=== PATIENT | male | born 2005 | race Two or more races ===

== ENCOUNTER 2024-11-19 08:48 | Emergency (ER) | payer BC, SELFPAY ==
[2024-11-19 08:52] VITALS: BP 136/85; PULSE 51; TEMP 36.5; O2SAT 97; BMI 22.0
--- NOTE | 2024-11-19 09:05 | XR_ITS ---
The [address] [address] Patient Name: MELLO HUNG MRN: [id number] date: 2005 Sex: M Assigned Patient Location: ER Current Patient Location: ER Accession/Order Number: [id number] Exam Date: 11/19/2024 09:49 Report Date: 11/19/2024 09:49 At the request of: ALLAN GRAY MD Procedure: XR knee RT 4V RIGHT KNEE - 4 views CLINICAL HISTORY: soccer injury pain and swelling COMPARISON: None FINDINGS: No significant joint effusion. Joint spaces appear maintained. No acute bony process. XR/XR knee RT 4V IMPRESSION: NO ACUTE BONY PROCESS. Impression dictated by: Spencer Retana Jr., D.ORadha 11/19/2024 9:49 AM Dictation Location: [place] [address] Electronically authenticated by: [id number] Y Date: 11/19/2024 09:49
[2024-11-19] MEDS: KETOROLAC TROMETHAMINE 30 MG/ML VIAL IM (09:31)
--- NOTE | 2024-11-19 10:01 | ED_ITS ---
HPI HPI - Extremity Injury (Lower) General Chief Complaint: Extremity Injury, Lower Stated Complaint: LOWER EXTREMITY INJURY - 11/18/2024 Time Seen by Provider: 11/19/24 08:59 Source: patient Mode of arrival: walk-in Limitations: no limitations History of Present Illness HPI Narrative: The patient is coming to the ER after he sustained a soccer injury yesterday when one of his play made hit his right knee sideway he started having pain right away and has been having some swelling in the right knee not able to put any weight on it Related Data Previous Rx's ?Medication ?Instructions ?Recorded diclofenac sodium 75 mg 75 mg PO BID PRN pain #20 ta bs 11/19/24 tablet,delayed release Allergies Allergy/AdvReac Type Severity Reaction Status Date / Time No Known Drug Allergies Allergy Verified 11/19/24 08:52 Opioid HPI Opioid Management Most Recent Pain and Opioid Data: Last Pain Scale 6 Today, 09:31 Last MAR Pain Assessment Today, 09:31 Review of Systems ROS Status of ROS 10 or more systems reviewed and unremark able except as noted in history and below PFSH PFS Medical History (Updated 11/19/24 @ 10:00 by Kristi West MD) No pertinent past medical history ?Z78.9 - Other specified health status (ICD-10) Surgical History (Updated 11/19/24 @ 09:20 by Reese Elizabeth) No pertinent past surgical history ?Z78.9 - Other specified health status (ICD-10) Social History Little interest or pleasure in doing things: not at all Feeling down, depressed, or hopeless: not at all Exam Narrative Exam Narrative: Nurses notes and vital signs reviewed and patient is not hypoxic. General: Well-appearing and in no apparent distress. Skin: Warm, dry, no pallor noted. No rash. Right lower extremity exam: The patient have swelling of the right knee that is obvious over the mostly medial swelling of the lateral and the patient does have tenderness upon palpation of the medial aspect with the pain with flexion beyond 90 degrees, the patient still has full range of movement and there is no vascular injury detected there is no open wound or any ecchymosis Anterior and posterior drawer signs are negative but the patient medial abiodun ateral could be injured Constitutional Vital Signs, click to edit/add: Last Vital Signs Temp 97.7 F 11/19/24 08:52 Pulse 51 L 11/19/24 08:52 Resp 16 11/19/24 08:52 BP 136/85 11/19/24 08:52 Pulse Ox 97 11/19/24 08:52 O2 Del Method Room Air 11/19/24 08:52 Course Vital Signs Vital signs: Vital Signs Temperature 97.7 F 11/19/24 08:52 Pulse Rate 51 L 11/19/24 08:52 Respiratory Rate 16 11/19/24 08:52 Blood Pressure 136/85 11/19/24 08:52 Pulse Oximetry 97 11/19/24 08:52 Oxygen Delivery Method Room Air 11/19/24 08:52 Temperature 97.7 F 11/19/24 08:52 Pulse Rate 51 L 11/19/24 08:52 Respiratory Rate 16 11/19/24 08:52 Blood Pressure 136/85 11/19/24 08:52 Pulse Oximetry 97 11/19/24 08:52 Oxygen Delivery Method Room Air 11/19/24 08:52 MDM - Extremity Injury (Lower) MDM Narrative Medical decision making narrative: X-ray of the patient knee showed no acute pathology but his presentation is mostly secondary to possible ligament injury mostly of the medial collateral The patient already had his crutches at the bedside and he was provided with knee immobilizer and instructed to not bear any weight on his right leg until he is fully evaluated by orthopedic Also to elevate and rest The patient is to follow up with primary care physician in next 2-3 days or to return to the emergency department should any of the signs or symptoms worsen or new symptoms develop. The patient agrees with the following Diagnosis and Treatment plan and the patient will be discharged home. Discharge Plan Discharge Chief Complaint: Extremity Injury, Lower Clinical Impression: Injury of knee, ligament Patient Disposition: Home, Self-Care Time of Disposition Decision: 10:00 Condition: Good Prescriptions / Home Meds: New diclofenac sodium 75 mg tablet,delayed release (DR/EC) 75 mg PO BID PRN (Reason: pain) Qty: 20 0RF Print Language: Citizen Of [place] Instructions: Crutch Instructions (ED) Referrals: Physician,Non-Staff, MD [Primary Care Provider] - 1 week Tr Loomis MD [Physician, Orthopedics] - 1 week Discharge Date/Time: 11/19/24 10:27
== END 2024-11-19 10:27 | disposition home or self-care (01) ==
PROVIDERS: Emergency Provider Emergency Medicine
DX: S89.81XA Other specified injuries of right lower leg, initial encounter (principal); Y93.66 Activity, soccer
CPT/HCPCS: 73564; 96372; 99284; J1885